=== PATIENT | male | born 1960 | race African-American/Black ===

== ENCOUNTER 2021-04-22 06:15 | Day surgery (SDC) | payer OTHER ==
[~2021-04-22] VITALS: Ht 172.7 cm; Wt 80.0 kg
[~2021-04-22 06:15] MED LIST: ACET325T21 PO; AMLO-186 PO; HYDROmorphone 2 MG/ML VIAL IVP PRN; INDO25CA21 PO; IV RINGERS,LACTATED 1000ML 1,000 ML IV SCH; OMEP20CA16 PO; PRAV20TA2 PO; PROCHLORPERAZINE 10 MG/2 ML VIAL. IVP PRN; TAMS0.4C97 PO; VENL150C6 PO; fentaNYL PF VIAL 100 MCG/2 ML VIAL IVP PRN
[2021-04-22 06:23] VITALS: BP 111/59
[2021-04-22] MEDS ORDERED: PROPOFOL 10 MG/ML (20ML) VIAL. IV ONE (07:09)
[2021-04-22] MEDS ORDERED: fentaNYL PF VIAL 100 MCG/2 ML VIAL ONE (07:09)
[2021-04-22] MEDS ORDERED: LIDOCAINE 1% PF 5 ML VIAL. ONE (07:09)
--- NOTE | 2021-04-22 07:35 | DISCH ---
DISCHARGE INSTRUCTIONS Condition on Discharge Condition on Discharge: Stable Activity After Discharge Activity Instructions for Disc: Progressive ambulation, Other, see below (Only restriction is weightbearing in a boot to protect his healing incision) Weight Bearing Status after Di: As tolerated Diet after Discharge Diet after Discharge: Regular Wound Incision Care Wound/Incision Care: Ice to area for comfort, Change dressing (May remove dressing if bloody or soiled and keep a light dressing on until suture removal about 2 weeks) Other wound/incision instructi: Sutures can removed locally at facility, followup only needed for wound prn Contacting the DRColby after DC Call your doctor for: Concerns you may have Follow-Up Follow up with: Sutures may be removed at facility in 2 weeks, follow-up as needed for FELICIA Gary MD Apr 22, 2021 07:35
[2021-04-22] MEDS ORDERED: ONDANSETRON PF 4 MG/2 ML VIAL. ONE (07:55)
[2021-04-22] MEDS ORDERED: PROCHLORPERAZINE 10 MG/2 ML VIAL. ONE (08:21)
[2021-04-22] MEDS ORDERED: MORPHINE SULFATE 2 MG/ML INJ. ONE ×2 (08:21→08:38)
--- NOTE | 2021-04-22 08:22 | PDOC4 ---
Operative Note Operative Note Date of surgery: 04/22/2021 Preoperative diagnosis: Painful right ankle hardware Postoperative diagnosis: Same with prominent right lateral ankle hardware and healed distal fibula fracture Operative procedure: Removal of right ankle plate and screws with overgrown bone resulting in some prominent but other deep buried hardware Surgeon: [employer] Cartoonist: Chitra murry Anesthesia: General Estimated blood loss: 5 cc Complications: None Operative indications: Patient is a 61-year-old male with remote fixation of a right distal fibula fracture with prominent hardware that rubs on his shoes and is very uncomfortable with activities of daily living. We had talked about the fact that the fracture is healed and the possibility of hardware removal of the prominent portions and the risks of potential infection nerve or blood vessel damage medical other anesthetic complications among others and no guarantee of the relief of his pain as it may be from the fracture itself and other factors. He agrees to proceed with surgical evaluation and treatment Operative text: Patient was identified procedure verified patient placed in the supine position on the operating table. After adequate amounts of general anesthesia were administered the right lower extremity was prepped and draped in standard sterile fashion with a thigh tourniquet. After timeout was performed patient procedure identified and verified the right lower extremity was exsangui nated by Esmarch bandage tourniquet inflated to 250 mmHg and with the hardware palpable over the distal fibula, midline incision was made and dissection carried out to identify the prominent plate and screw fixation, all 6 screws were removed fixating the plate after removal of overgrown bone over some of the screws. Plate was then removed along with overgrown bone and thorough ir rigation carried out with normal saline solution verifying that no sharp bony edges were remaining. Interfragmentary screw was left as it was not at all prominent and ankle joint mortise was noted to be intact and stable. Subcutaneous closure with buried Vicryl suture skin closure with nylon suture and a sterile soft dressing was applied. Patient was returned to recovery room in stable condition having tolerated procedure well. I had previously discussed weightbearing as tolerated with a boot for protection until his wound is healed and sutures can be removed at his facility with follow-up as needed if he has any wound complications FELICIA KAUR MD Apr 22, 2021 08:22
[2021-04-22] MEDS: MORPHINE SULFATE 2 MG/ML INJ. IVP PRN ×4 (08:24→08:59)
[2021-04-22 08:52] VITALS: BP 129/79
[2021-04-22] MEDS ORDERED: ACETAMINOPHEN 325 MG TABLET. PO ONE (09:18)
[2021-04-22] MEDS ORDERED: ACETAMINOPHEN 500 MG TABLET PO ONE (09:45)
== END 2021-04-22 09:34 | disposition home or self-care (01) ==
LOC: SURG 06:15
PROVIDERS: ATTEND Orthopaedic Surgery
DX: T84.84XA Pain due to internal orthopedic prosthetic devices, implants and grafts, initial encounter (principal); I10 Essential (primary) hypertension; E78.00 Pure hypercholesterolemia, unspecified; K21.9 Gastro-esophageal reflux disease without esophagitis; M19.90 Unspecified osteoarthritis, unspecified site; F32.9 Major depressive disorder, single episode, unspecified; Z79.82 Long term (current) use of aspirin; Z79.899 Other long term (current) drug therapy; Z88.8 Allergy status to other drugs, medicaments and biological substances; X58.XXXA Exposure to other specified factors, initial encounter; Y93.89 Activity, other specified; Y92.89 Other specified places as the place of occurrence of the external cause; Y99.8 Other external cause status
CPT/HCPCS: 20680; A4930; A6402; A6449; J0690; J0780; J2270; J2405; J2704; J3010; J3490; 76000; A4223; A6455